=== PATIENT | male | born 2005 | race African-American/Black ===

== ENCOUNTER 2025-08-22 22:06 | Inpatient (IN) | payer SELFPAY ==
--- OUTSIDE RECORDS SUMMARY | 2018-05-21 08:00 | XMS_ITS | Continuity of Care Document ---
Author Organization [facility] Address [address] [place] [address] Phone Care Team Providers Care Title Agent Name Role Phone Sandra Merino Unavailable Unavailabl e Allergies, Adverse Reactions, Alerts Substance Reaction Status Criticality No Known Allergies Active No Inform ation Medications Medication Instructions Dosage Effective Dates (start - stop) Status Comments No Drug Therapy Prescribed Procedures Procedure Date Office Visit New Pt Level 3 Results Test Name Date and Time Measure Units Reference Range Abnormal Flag Status Comments Panel Description: CULTURE THROAT Preliminary CULTURE THROAT SEE BELOW Preliminary SOURCE: THROAT SITE: THROATTHROAT CULTURE THROAT,*PRELIMIN LORRIE* NO BETA STREP TO DATE FURTHER EVALUATION TO FOLLOW PERFORMED BY: [facility] [address] [place] [address] RESEARCH ENVIRONMENTAL ENGINEER: Ella Diamond MD, PhD CLIA: [id number] routine bacteriological identification and susceptibility testingis performed at the [facility] Panel Description: CULTURE THROAT Final CULTURE THROAT SEE BELOW Final SOURCE: [facility] SITE: THROATTHROAT CULTURE THROAT,FINAL* NO BETA STREP TO DATE FURTHER EVALUATION TO FOLLOW FINAL REPORT: NO BETA STREP ISOLATED PERFORMED BY: [facility] [address] [place] [address] RESEARCH ENVIRONMENTAL ENGINEER: Ella Diamond MD, PhD CLIA: [id number] routine bacteriological identification and susceptibility testingis performed at the [facility] Advance Directives Directive Yes / No Effective Date File Name No Information Encounters Encounter Description Practice Location Reason(s) For Visit Diagnoses Date Provider Office Visit New Pt Level 3 [facility], [address], [place], [id number], [place] tel:[phone] [facility] sore throat (chief complaint) Sore throat Godfrey Flores. [address] [place] [address], [address], . tel:[phone] Family History Family Member Type Diagnosis Age At Onset No Information Payers Payer name Insurance type Covered democrat ID Nga chow(matt BERNABE [id number] Social History Type Description Quantity Date Captured Comments Alcohol Use Details Unknown Caffeine Use Details Unknown Tobacco Use Status Never smoked tobacco 2017 Smoking Status Never smoker Non-Smoking Tobacco Use Details : No Details Available : No Details Available Sex Male Gender Identity Male Vital Signs Date / Time: Height Weight BMI Pulse Rate Blood Pressure Temperature Respiratory Rate Body Surface Area Head Circumference Head Circ. Percentile Wt./Brian. Percentile BMI percentile Pulse Ox Inhaled Ox 12:12 PM 61.235 kg (135.00 lbs) 80 /min 104/70 mm[Hg] 98.80 F 16 /min Chief Complaint And Reason For Visit From encounter dated '05/21/2018 12:00'. sore throat (chief complaint). Description: Onset: 3 Days ago. The severity of the problem is severe and has worsened. Pain scale: 7/10. The symptoms are persistent. Symptoms are associated with exposure to strep. Symptoms are not associated with recent cold. Denies relieving factors. Associated symptoms include pharyngitis. Pertinent negatives include chills/rigors, cough, decreased appetite, dyspnea, fatigue, fever, headache, otalgia, rash, tooth pain and wheezing. History Of Present Illness Encounter Date Complaint History Of Prese nt Illness sore throat Onset: 3 Days ag o. The severity of the problem is severe and has worsened. Pain scale: 7/10. The symptoms are persistent. Symptoms are associated with exposure to strep. Symptoms are not associated with recent cold. Denies relieving factors. Associated symptoms include pharyngitis. Pertinent negatives include chills/rigors, cough, decreased appetite, dyspnea, fatigue, fever, headache, otalgia, rash, tooth pain and wheezing. Medications Administered Medication Instructions Dosage Effective Dates (start - stop) Status Comments No Drug Therapy Prescribed Instructions Date Instruction Additional Infor mandeepkavon You have pharyngitis , which is likely viral given your negative rapid strep test. This means that antibiotics will not be helpful. We will be sending this for culture and will notify you if an antibiotic is needed. For treatment I recommend gargling salt water, drinking soothing liquids, honey, kandace tea, and popsicles as your illness runs its course. Be sure to rest as you are able and push fluids. OTC cough drops and Chloraseptic sprays can be very helpful as well. Ibuprofen 400mg three times a day as needed for discomfort. If things are not improving in the next 5 days, please return here. Related to Sore throat Assessments Type Assessment Date assessment Sore throat Mental Status Date Cognitive Assessment Orientation - [place] ed to time, place, person, situation.
--- OUTSIDE RECORDS SUMMARY | 2025-08-22 22:17 | XMS_ITS | Clinical Summary ---
Author Organization [facility] Address [address] [place] [address] [place] [address] Phone Care Team Providers Care Finish Machine Tender Name Role Phone Filipe Marie MD Primary Care Provide r Filipe Marie MD Unavailable [phone] Allergies No known active allergies Medications methylphenidate HCl 18 MG ER tablet Take 1 tablet (18 mg total) by mouth every morning. 30 tablet 04/19/2024 Active Active Problems Problem Noted Date Diagnosed Date Attention deficit hyperactiv ity disorder (ADHD), combined type 04/19/2024 Overview (04/19/2024): Dx by neuropsych testing Autism spectrum disorder 04/19/2024 Overview (04/19/2024): Dx by neuropsych testing: mild Resolved Problems Problem Noted Date Diagnosed Date Resolved Date Asthma 09/14/2012 10/25/2019 Overview (12/27/2014): Asthma Encounters Date Type Department Care Team Description 08/22/2025 [employer] Generated VIRTUAL DEPARTMENT [address] [place] [address] Lan De La Torre MD 08/21/2025 [employer] Generated VIRTUAL DEPARTMENT [address] [place] [address] Yesy, Yesy, 07/03/2025 [employer] Generated VIRTUAL DEPARTMENT [address] [place] [address] Yesy, Yesy, 06/09/2025 Orders Only [facility] [address] [facility], [address] [address] Fliipe Marie MD 06/02/2025 Nurse Triage [facility] [address] [facility], [address] [address] Aidee Cam RN 05/30/2025 10:13 AM EDT - 05/30/2025 11:59 PM EDT Hospital Encounter [facility] [address] [place] [address] Filipe Marie MD Discharge Disposition: Home or Self Care 05/30/2025 8:50 AM EDT Office Visit [facility] [address] [facility], [address] [address] Filipe Marie MD Annual physical exam (Primary Dx) 05/30/2025 Orders Only [facility] [address] [facility], [address] [address] Filipe Marie MD 05/30/2025 Transcribe Orders [facility] [address] [place] [address] Dejan Keita 05/30/2025 Orders Only [facility] [address] [facility], [address] [address] Samaria Rader, ORQUIDEA 05/28/2025 Orders Only [facility] [address] [facility], [address] [address] Filipe Marie MD from Last 3 Months Immunizations Immunization Administration Dates Next Due DTaP, unspecified formulation 11/03/2008 ,04/04/2006,03/30/2005,01/20,2004 HPV9 09/19/2018,09/22/2017 Hepatitis A, Unspecified 04/20/2007,10/20/2006 Hib-Hep B 12/26/2005,01/20/2005,2004 INFLUENZA, SPLIT VIRUS, TRIVALENT PF 08/02/2024, 09/14/2012 Influenza Quadrivalent Pedia tric Preservative Free IM 08/14/2020 Influenza Quadrivalent Prese rvative Free IM 09/30/2019,09/19/2018,09/22/2017,10/14,09/18/2015,09/19/2014,2013 Influenza Quadrivalent w/ Pr eservative IM 09/11/2021 Influenza Recombinant Chely valent Preservative Free IM 11/27/2022 Influenza, Unspecified Formulation 09/14/2012,,12/12/2008 MMR 11/03/2008,12/26/2005 Meningococcal MCV4P 10/13/2021,10/14/2016 Pneumococcal conjugate, PCV 7 09/16/2005 ,03/30/2005,01/20/2005,11/18 Polio, Unspecified Formulation 8,04/04/2006,01/20/2005,11/18 Tdap 10/14/2016 Varicella 11/03/2008,12/26/2005 Family History Relation Status Comments Brother Alive Father Alive Mother Alive Social History Tobacco Use Types Packs/Day Years Used Date Smoking Tobacco: Never Assessed Education Answer Date Recorded Are you interested in more education? Not on mouna e 03/04/2023 Are you concerned about learning? Not on file 03/04/2023 No 03/04/2023 No 03/04/2023 Digital Access Answer Date Recorded No 03/29/2023 No 03/29/2023 Reliable internet access at home? Not on file 03/29/2023 Device with a working camera? Not on file Sex and Gender Information Value Date Recorded Sex Assigned at Not on file Legal Sex Male 6:34 PM EST Gender Identity Not on file Sexual Orientation Not on file Last Filed Vital Signs Vital Sign Reading Time Taken Comments Blood Pressure 120/70 05/30/2025 9:11 AM EDT Pulse 65 02/10/2021 5:07 PM EDT Temperature 36.9 C (98.4 F) 02/10/2021 5:07 PM EDT Respiratory Rate 17 02/10/2021 5:07 PM EDT Oxygen Saturation 98% 02/24/2018 11:24 AM EDT Inhaled Oxygen Concentration - - Weight 78 kg (172 lb) 05/30/2025 9:11 AM EDT Height 178 cm (5' 10.08 ) 05/30/2025 9:11 AM EDT Body Mass Index 24.62 05/30/2025 9:11 AM EDT Plan of Treatment Health Maintenance Due Date Last Done Comments DEVELOPMENTAL/BEHAVIORAL SCREENING (PHQ, PSC, or SWYC) 2007 DEPRESSION SCREENING 2016 SMOKING Hx and SMOKELESS TOBACCO SCREENING 2017 MENINGOCOCCAL VACCINES (B) (1 of 2 - Standard) 2020 INFLUENZA VACCINE (#1) 2025 , 11/27/2022, 09/11/2021, Additional history exists COVID-19 VACCINE ( - 2024- season) 2025 11/27/2022, 05/02/2021, 04/11/2021 COMBINED DTaP,Tdap,Td (7 - Td or Tdap) 10/14/2026 10/14/2016, 11/03/2008, 04/04/2006, Additional history exists PNEUMOCOCCAL VACCINES (0-49 years) Aged Out 09/16/2005, 03/30/2005, 01/20/2005, Additional history exists No longer eligible based on patient's age to complete this topic HIB VACCINES Completed 12/26/2005, 01/04, 2004 HEPATITIS A VACCINES Completed 04/20/2007, 10/20/20 MMR VACCINES Completed 11/03/2008, 12/26/2005 VARICELLA VACCINES Completed 11/03/2008, 12/26/2005 HPV VACCINES Completed 09/19/2018, 09/22/2017 MENINGOCOCCAL VACCINES (ACWY) Completed 10/13/2021, 10/14/2016 ADOLESCENT UNIVERSAL LIPID SCREENING Completed 04/19/2024 HEPATITIS C SCREENING Completed 07/03/2025 HIV ONE-TIME SCREENING (18-65 YEARS) Completed 07/03/2025 Medical Devices Not on file Procedures Procedure Name Priority Date/Time Associated Diagnosis Comments CBC AND DIFFERENTIAL STAT 08/22/2025 12:33 AM EDT BASIC METABOLIC PANEL STAT 08/22/2025 12:32 AM EDT ETHANOL, BLOOD STAT 08/22/2025 12:32 AM EDT TOXICOLOGY SCREEN, URINE STAT 08/22/2025 12:12 AM EDT QUEST MISC TEST-REFRIG1 STAT 07/03/20 3:28 PM EDT LEUKEM/LYMP PHENOTYPE STAT 07/03/2025 3:28 PM EDT FERRITIN STAT 07/03/2025 3:28 PM EDT VITAMIN B12 STAT 07/03/2025 3:28 PM EDT IMMUNOGLOBULINS IGG, IGA, IGM STAT 07/03/2025 3:28 PM EDT LDH STAT 07/03/2025 3:28 PM EDT COMPREHENSIVE METABOLIC PANEL STAT 07/03/2025 3:28 PM EDT RETICULOCYTE COUNT STAT 07/03/2025 3: 28 PM EDT CBC AND DIFFERENTIAL STAT 07/03/2025 3:28 PM EDT DIRECT MOUNIKA Routine 07/03/2025 3:27 PM EDT AMINATA ZARATE VIRUS EVAL STAT 07/03/20 3:25 PM EDT IMMUNOFIXATION STAT 07/03/2025 3:25 PM EDT SERUM PROTEIN ELECTROPHORESIS STAT 07/03/2025 3:25 PM EDT EBV IGG EARLY ANTIGEN STAT 07/03/2025 3:25 PM EDT FREE KAPPA/LAMBDA LIGHT CHAINS STAT 07/03/2025 3:25 PM EDT HAPTOGLOBIN STAT 07/03/2025 3:25 PM EDT FOLATE STAT 07/03/2025 3:25 PM EDT HEPATITIS B CORE ANTIBODY, TOTAL STAT 07/03/2025 3:25 PM EDT HEPATITIS B SURFACE ANTIBODY STAT 07/03/2025 3:24 PM EDT HEPATITIS C VIRUS IGG AB STAT 07/03/2025 3:24 PM EDT HIV-1/2 ANTIGEN/ANTIBODY STAT 07/03/2025 3:24 PM EDT HEPATITIS B SURFACE ANTIGEN STAT 07/03/2025 3:24 PM EDT TSH STAT 07/03/2025 3:23 PM EDT IRON AND IRON BINDING CAPACITY STAT 07/03/2025 3:23 PM EDT COPPER, SERUM STAT 07/03/2025 3:22 PM EDT CBC AND DIFFERENTIAL Routine 05/30/2025 10:13 AM EDT Annual physical exam LIPID PANEL Routine 04/19/2024 11:39 AM EDT Annual physical exam from Last 3 Months or Most Recently Relevant to Health Maintenance Results * (ABNORMAL) CBC and differential (08/22/2025 12:33 AM EDT) Only the most recent of3 resultswithin the time period is included. WBC 6.1 4.5 - 11.0 10*3/mm3 [facility] (CLIA# [id number]) RBC 4.77 4.50 - 5.90 10*6/mm3 [facility] (CLIA# [id number]) Hemoglobin 14.3 13.5 - 17.5 g/dL [facility] (CLIA# [id number]) Hematocrit 41.9 41.0 - 53.0 % [facility] (CLIA# [id number]) Platelet 224 150 - 450 10*3/mm3 [facility] (IA# [id number]) % Neutrophils 65.6(H) 40 - 62 % [facility] (IA# [id number]) % Lymphocytes 23.8(L) 27 - 40 % [facility] (IA# [id number]) % Monocytes 7.4 0 - 11 % [facility] (IA# [id number]) % Eosinophils 2.1 0 - 6 % [facility] (IA# [id number]) % Basophils 0.8 0 - 3 % [facility] (IA# [id number]) % Immature Granulocytes 0.3 0 - 5 % [facility] (IA# [id number]) Abs Neutrophils 4.0 1.8 - 8.1 10*3/mm3 [facility] (CLIA# [id number]) Abs Lymph Count 1.4 1.2 - 5.2 10*3/mm3 [facility] (CLIA# [id number]) Abs Monocytes 0.5 0.0 - 0.8 10*3/mm3 [facility] (CLIA# [id number]) Abs Eosinophils 0.1 0 - 0.5 10*3/mm3 [facility] (CLIA# [id number]) Abs Basophils 0.1 0 - 0.3 10*3/mm3 [facility] (CLIA# [id number]) Abs Immature Granulocytes 0.0 0 - 0.5 10*3/mm3 [facility] (CLIA# [id number]) MCV 87.8 80.0 - 99.0 fL [facility] (CLIA# [id number]) MCH 30.0 26.0 - 34.0 pg [facility] (CLIA# [id number]) MCHC 34.1 31.0 - 35.5 g/dL [facility] (CLIA# [id number]) RDW 12.0 11.5 - 14.5 % [facility] (CLIA# [id number]) MPV 9.8 9.4 - 12.4 fL [facility] (CLIA# [id number]) % Nucleated RBC 0 0 % [facility] (CLIA# [id number]) Abs Nucleated RBC 0.0 0 10*3/mm3 E [facility] (CLIA# [id number]) 08/22/2025 12:3 3 AM EDT 08/22/2025 12:51 AM EDT Lan De La Torre MD LAB BLOOD ORDERABLES Final Result [facility] (CLIA# [id number]) [address] [place] [address] * Ethanol, blood (08/22/2025 12:32 AM EDT) Ethanol < 3 <3 mg/dL [facility] (CLIA# [id number]) 08/22/2025 12:3 2 AM EDT 08/22/2025 12:52 AM EDT us Lan De La Torre MD LAB BLOOD ORDERABLES Final Result [facility] (CLIA# [id number]) [address] [place] [address] * (ABNORMAL) Basic metabolic panel (08/22/2025 12:32 AM EDT) Sodium 138 135 - 145 mmol/L [facility] (CLIA# [id number]) Potassium 3.2(L) 3.5 - 5.5 mmol/L [facility] (CLIA# [id number]) Chloride 100 98 - 107 mmol/l [facility] (CLIA# [id number]) Carbon Dioxide 26 20.0 - 31.0 mmol/L [facility] (CLIA# [id number]) Anion Gap 12 5 - 15 mmol/L [facility] (CLIA# [id number]) Glucose 99 70 - 99 mg/dL [facility] (CLIA# [id number]) Comment:Adult, Fasting Non-d iabetic Reference Range Blood Urea Nitrogen 6(L) 9 - 23 mg/dL [facility] (CLIA# [id number]) Creatinine 0.97 0.70 - 1.30 mg/dL [facility] (CLIA# [id number]) GFR Estimated (Calc) 115 >60 [facility] (CLIA# [id number]) Comment: eGFRcr Reference: Normal: > 90 ml/min/1.73 m2 Indeterminate, relevance is multifactorial: 60 -89 ml/min/1.73 m2 Suggest Kidney Disease: 16 -59 ml/min/1.73 m2 Suggest Kidney Failure: < 15 ml/min/1.73 m2 Calcium 9.9 8.3 - 10.6 mg/dL [facility] (CLIA# [id number]) 08/22/2025 12:3 2 AM EDT 08/22/2025 12:52 AM EDT us Lan De La Torre MD LAB BLOOD ORDERABLES Final Result [facility] (CLIA# [id number]) [address] [place] [id number] * Toxicology screen, urine (08/22/2025 12:12 AM EDT) Amphetamines, Urine NONE DETECTED [facility] (CLIA# [id number]) Barbiturates, Urine NONE DETECTED [facility] (CLIA# [id number]) Benzodiazepines, Urine NONE DETECTED [facility] (CLIA# [id number]) Cannabinoids(THC), Urine POSITIVE [facility] (CLIA# [id number]) Cocaine Metabolites, Urine NONE DETECTED [facility] (CLIA# [id number]) Opiates, Urine NONE DETECTED [facility] (CLIA# [id number]) Fentanyl, Urine NONE DETECTED [facility] (CLIA# [id number]) Buprenorphine, Urine NONE DETECTED [facility] (CLIA# [id number]) Comment: UDA CUTOFF VALUES UR AMPHETAMINES 1000 ng/mL UR BARBITURATES 200 ng/mL UR BENZODIAZEPINES 200 ng/mL UR CANNABINIODS 50 ng/mL UR COCAINES 300 ng/mL UR OPIATES 300 ng/mL UR FENTANYL 1 ng/mL UR BUPRENORPHINE 5 ng/mL [facility] performs toxicology screens to be used for screening purposes only for the clinical management of the patient. This includes drug screens to test for drugs of abuse and testing for compliance with mental health or rehabilitation programs. The results of these tests are unconfirmed. Confirmatory testing can be done by request on any positive result. 08/22/2025 12:1 2 AM EDT 08/22/2025 12:32 AM EDT us Lan De La Torre MD URINE ORDERABLES Final Resu lt [facility] (CLIA# [id number]) [address] [place] [address] * Leukemia/Lymphoma Phenotype (07/03/2025 3:28 PM EDT) Clinical Information: NOT PROVIDED () [facility] (CLIA# [id number]) Viability: 87 () % [facility] (CLIA# [id number]) Interpretation SEE BELOW () [facility] (CLIA# [id number]) Comment: NO ATYPICAL FLOW CYTOMETRIC FINDINGS SEEN Lymphocytes include polyclonal B cells, NK cells, T-cell large granular lymphocytes, and immunophenotypically normal CD4+ and CD8+ T cells in normal proportions. No evidence of a clonal lymphoid expansion. Granulocytes are immunophenotypically mature. Flow Cytometry reviewed by William Hansen M.D. Sample Description: SEE BELOW () [facility] (CLIA# [id number]) Comment: The analyzed WBCs in the sample include 28% lymphocytes, 7% monocytes and 65% granulocytes. Gating Strategy: SEE BELOW () [facility] (CLIA# [id number]) Comment: Granulocytes and lymphocytes were selected for analysis based on CD45 staining intensity, forward scatter and side scatter. Specimen PERIPHERAL BLOOD () [facility] (CLIA# [id number]) Number Of Markers: 22 () E [facility] (CLIA# [id number]) Comment: Test performed at [facility] [place] [id number] [place], [place] Director: Obdulio Miller M.D., Ph.D.,Director of Laboratories Markers SEE BELOW () [facility] (CLIA# [id number]) Comment: Rebecca A - Granulocytes Marker Percentage CD2 0 CD3 0 CD4 0 CD5 0 CD7 0 CD8 0 CD10 92 CD11c 100 CD13 97 CD19 0 CD19+CD5+ 0 CD20 0 CD23 1 CD33 1 CD34 0 CD38 2 CD45 100 CD56+CD3- 1 CD64 0 CD117 1 HLA_DR 2 [place] CD19+ 0 Lambda CD19+ 0 K/L Ratio NA Rebecca B - Lymphocytes Marker Percentage CD2 79 CD3 74 CD4 49 CD5 75 CD7 62 CD8 27 CD10 2 CD11c 6 CD13 0 CD19 11 CD19+CD5+ 1 CD20 11 CD23 6 CD33 0 CD34 0 CD38 40 CD45 100 CD56+CD3- 6 CD64 0 CD117 0 HLA_DR 16 [place] CD19+ 6 Lambda CD19+ 5 K/L Ratio 1.20 This test was developed and its analytical performance characteristics have been determined by [facility] [place], [place]. It has not been cleared or approved by the U.S. Food and Drug Administration. This assay has been validated pursuant to the CLIA regulations and is used for clinical purposes. 07/03/2025 3:28 PM EDT 07/03/2025 3:42 PM EDT us Lan Estrada [facility] LAB BLOOD ORDERABLES Fin al Result [facility] (CLIA# [id number]) [address] [place] [address] * Reticulocyte count (07/03/2025 3:28 PM EDT) % Reticulocyte 1.0 0.5 - 1.5 % [facility] (CLIA# [id number]) Abs Reticulocyte 0.05 0.04 - 0.07 10*3/mm3 [facility] (CLIA# [id number]) 07/03/2025 3:28 PM EDT 07/03/2025 3:37 PM EDT Lan Estrada [facility] LAB BLOOD ORDERABLES Fin al Result Performing Organization Address [facility] Co de Phone Number [facility] (CLIA# [id number]) [address] [place] [address] * LDH (07/03/2025 3:28 PM EDT) LDH 239 120 - 246 U/L [facility] (CLIA# [id number]) 07/03/2025 3:28 PM EDT 07/03/2025 3:37 PM EDT Lan Estrada [facility] LAB BLOOD ORDERABLES Fin al Result Performing Organization Address [facility] de Phone Number [facility] (CLIA# [id number]) [address] [place] [address] * (ABNORMAL) Immunoglobulins IgG, IgA, IgM (07/03/2025 3:28 PM EDT) Immunoglobulin M 44.2(L) 50 - 300 mg/dL [facility] (CLIA# [id number]) Immunoglobulin A 105.1 40 - 350 mg/dL [facility] (CLIA# [id number]) Immunoglobulin G 873 650 - 1,600 mg/dL [facility] (CLIA# [id number]) 07/03/2025 3:28 PM EDT 07/03/2025 3:37 PM EDT Lan Estrada [facility] LAB BLOOD ORDERABLES Fin al Result Performing Organization Address [facility] Co de Phone Number [facility] (CLIA# [id number]) [address] [place] [address] * (ABNORMAL) Comprehensive metabolic panel (07/03/2025 3:28 PM EDT) Sodium 140 135 - 145 mmol/L [facility] (CLIA# [id number]) Potassium 3.9 3.5 - 5.5 mmol/L [facility] (CLIA# [id number]) Chloride 102 98 - 107 mmol/l [facility] (CLIA# [id number]) Carbon Dioxide 28 20.0 - 31.0 mmol/L [facility] (CLIA# [id number]) Anion Gap 10 5 - 15 mmol/L [facility] (CLIA# [id number]) Glucose 86 70 - 99 mg/dL [facility] (CLIA# [id number]) Comment:Adult, Fasting Non-d iabetic Reference Range Blood Urea Nitrogen 8(L) 9 - 23 mg/dL [facility] (CLIA# [id number]) Creatinine 1.25 0.70 - 1.30 mg/dL [facility] (CLIA# [id number]) GFR Estimated (Calc) 85 >60 [facility] (CLIA# [id number]) Comment: eGFRcr Reference: Normal: > 90 ml/min/1.73 m2 Indeterminate, relevance is multifactorial: 60 -89 ml/min/1.73 m2 Suggest Kidney Disease: 16 -59 ml/min/1.73 m2 Suggest Kidney Failure: < 15 ml/min/1.73 m2 Calcium 10.4 8.3 - 10.6 mg/dL [facility] (CLIA# [id number]) Comment:PLEASE NOTE: NEW REF ERENCE RANGE Total Protein 8.2 5.7 - 8.2 g/dL [facility] (CLIA# [id number]) Albumin 5.3(H) 3.2 - 4.8 g/dL [facility] (CLIA# [id number]) Globulin 2.9 1.6 - 3.5 g/dL [facility] (CLIA# [id number]) Alb/Glob Ratio 1.8 [facility] (CLIA# [id number]) Bilirubin,Total 0.8 0.3 - 1.2 mg/dL [facility] (CLIA# [id number]) Alkaline Phosphatase 71 46 - 116 U/L [facility] (CLIA# [id number]) AST(SGOT) 56(H) 13 - 40 U/L [facility] (CLIA# [id number]) ALT(SGPT) 69(H) 7 - 40 U/L [facility] (CLIA# [id number]) 07/03/2025 3:28 PM EDT 07/03/2025 3:37 PM EDT us Lan Estrada [facility] LAB BLOOD ORDERABLES Fin al Result [facility] (CLIA# [id number]) [address] [place] [address] * [facility] Test-Refrig1 (07/03/2025 3:28 PM EDT) Pathologist [facility] Test-Refrig1 FLEXITEST 3 () [facility] (CLIA# [id number]) Comment: FLEXITEST 3 A. PHAGOCYTOPHILUM AB IGG <1:64 <1:64 A. PHAGOCYTOPHILUM AB IGM <1:20 <1:20 INTERPRETATION Antibody Not Detected COMMENT Anaplasma phagocytophilum is the tick-borne agent causing Human Granulocytic Ehrlichiosis (HGE). HGE is distinct and separate from Human Monocytic Ehrlichiosis (HME), caused by Ehrlichia chaffeensis. Serologic crossreactivity between A. phagocyto- philum and E. chaffeensis is minimal (5-15%). This test was developed and its analytical performance characteristics have been determined by [facility], [place], [place]. It has not been cleared or approved by the U.S. Food and Drug Administration. This assay has been validated pursuant to the CLIA regulations and is used for clinical purposes. BABESIA DUNCANI (WA1) AB (IGG), IFA TESTS RESULTS--------UNITS--REF. RANGE--- B.DUNCANI(WA1)AB(IgG),IFA <1:256 REFERENCE RANGE: <1:256 INTERPRETIVE CRITERIA: <1:256 Antibody not detected > or = 1:256 Antibody detected Babesia duncani, also known as WA1, has been associated with symptoms similar to those caused by Babesia microti. Little, if any, cross-reactivity occurs between Babesia microti and WA1. This test was developed and its analytical performance characteristics have been determined by [facility]. It has not been cleared or approved by FDA. This assay has been validated pursuant to the CLIA regulations and is used for clinical purposes. Test performed by [facility] [address] [place] [address] Personal Financial Counselor: Dori Ruiz MD,PHD,VIDYA Test Reported by [facility], [facility] [place], [address] [place] [address] Obdulio Miller M.D., Ph.D., Director of Laboratories , [facility] [id number] BABESIA MICROTI AB (IGG) <1:64 <1:64 BABESIA MICROTI AB (IGM) <1:20 <1:20 INTERPRETATION Antibody Not Detected Elevated antibody levels to B. microti indicate exposure to the organism. Human babesiosis infection is transmitted by the bite of an infected Ixodes tick or less frequently from transfusion with blood from an infected donor. Definitive diagnosis is made by identifying intraerythrocytic organisms in peripheral blood. In patients with low parasitemia, antibody detection by IFA is recommended. IgG levels greater than or equal to 1:1024 can be detected in acute phase patients with parasites in blood smears. The IFA assay can be used as a seroepidemiologic tool to study the frequency and distribution of B. microti in endemic areas especially in persons with mixed infections also involving Borrelia burgdorferi. This test was developed and its analytical performance characteristics have been determined by [facility]. It has not been cleared or approved by the U.S. Food and Drug Administration. This assay has been validated pursuant to the CLIA regulations and is used for clinical purposes. LYME AB SCREEN <0.90 Index <0.90 Reference ranges: Index Interpretation ----- <0.90 Negative 0.90-1.09 Equivocal >1.09 Positive As recommended by the Food and Drug Administration (FDA), all samples with positive or equivocal results in a Borrelia burgdorferi antibody screen will be tested using a blot method. Positive or equivocal screening test results should not be interpreted as truly positive until verified as such using a supplemental assay (e.g., B. burgdorferi blot). The screening test and/or blot for B. burgdorferi antibodies may be falsely negative in early stages of Lyme disease, including the period when erythema migrans is apparent. The Code of [place], Article 1 of Chapter 5 of Title 32.1, section 32.1-137.06, requires that the following language must be included on every Lyme disease test report issued by a [place] laboratory: Patients undergoing a Lyme disease test should be aware that Lyme disease tests vary and may produce results that are inaccurate. This means a patient may not be able to rely on a positive or negative result. Health care providers are encouraged to discuss Lyme disease test results with the patient for whom the test was ordered. E. CHAFFEENSIS AB IGG <1:64 <1:64 E. CHAFFEENSIS AB IGM <1:20 <1:20 INTERPRETATION Antibody Not Detected COMMENT Ehrlichia chaffeenis has been identified as the causative agent of Human Monocytic Ehrlichiosis (HME). Infected individuals produce specific antibodies to E. chaffeensis that can be detected by an immuno- fluorescent antibody (IFA) test. Single IgG IFA titers of 1:64 or greater indicate exposure to E. chaffeensis. A four-fold rise in IgG titers between acute and convalescent samples and/or the presence of IgM antibody against E. chaffeensis suggest recent or current infection. This test was developed and its analytical performance characteristics have been determined by [facility], [place], [place]. It has not been cleared or approved by the U.S. Food and Drug Administration. This assay has been validated pursuant to the CLIA regulations and is used for clinical purposes. Test performed at [facility] [address] [place] [id number] Director: Obdulio Miller M.D., Ph.D.,Director of Laboratories 07/03/2025 3:28 PM EDT 07/03/2025 3:43 PM EDT us Lan Estrada [facility] LAB BLOOD ORDERABLES Fin al Result Performing Organization Address [facility] Co de Phone Number [facility] (CLIA# [id number]) [address] [facility] [place] [address] * Ferritin (07/03/2025 3:28 PM EDT) Ferritin 208.8 10.5 - 307.3 ng/mL [facility] (CLIA# [id number]) 07/03/2025 3:28 PM EDT 07/03/2025 3:37 PM EDT us Lan Estrada [facility] LAB BLOOD ORDERABLES Fin al Result Performing Organization Address [facility] Co de Phone Number [facility] (CLIA# [id number]) [address] [place] [address] * Vitamin B12 (07/03/2025 3:28 PM EDT) Vitamin B12 670 211 - 911 pg/mL [facility] (CLIA# [id number]) 07/03/2025 3:28 PM EDT 07/03/2025 3:37 PM EDT us Lan Estrada [facility] LAB BLOOD ORDERABLES Fin al Result Performing Organization Address [facility] Co de Phone Number [facility] (CLIA# [id number]) [address] [facility] [place] [address] * Direct Mounika (07/03/2025 3:27 PM EDT) Direct Antiglobulin Test (IgG-AHG) NEG [facility] (CLIA# [id number]) Direct Antiglobulin Test Anti-C3 NEG [facility] (CLIA# [id number]) TONY C3b, C3d 5 Minute NEG [facility] (CLIA# [id number]) 07/03/2025 3:27 PM EDT 07/03/2025 3:34 PM EDT us Unknown Unknown MD BLOOD BANK TEST ORDERABLES Fi nal Result Performing Organization Address City/[facility]/ZIP Co de Phone Number [facility] (CLIA# [id number]) [address] [place] [id number] * Free Umapine/Lambda Light Chains (07/03/2025 3:25 PM EDT) Umapine Free Light Chain, Ser 7.8 3.3 - 19.4 mg/L [facility] (CLIA# [id number]) Lambda Free Light Chain, Ser 7.0 5.7 - 26.3 mg/L [facility] (CLIA# [id number]) Umapine/Lambda Flc Ratio 1.11 0.26 - 1.65 [facility] (CLIA# [id number]) Comment: Free kappa/lambda ratio in serum of normal individuals is 0.26-1.65. Excess production of free kappa or lambda chains can alter the ratio. Monoclonal free light chains are found in the serum of patients with multiple myeloma, Waldenstrom's macroglobulinemia, mu-heavy chain disease, primary amyloidosis, light chain deposition disease, monoclonal gammopathy of undetermined significance, and lymphoproliferative disorders. Measurement of free light chain concen- tration in serum is useful for diagnosis, prognosis, monitoring disease activity and following response to therapy of these disorders. Test performed at [facility] [address] Director: Obdulio Miller M.D., Ph.D.,Director of Laboratories 07/03/2025 3:25 PM EDT 07/03/2025 3:43 PM EDT us Lan Estrada [facility] LAB BLOOD ORDERABLES Fin al Result Performing Organization Address City/[facility]/ZIP Co de Phone Number [facility] (CLIA# [id number]) [address] [place] [address] * (ABNORMAL) Serum Protein Electrophoresis (07/03/2025 3:25 PM EDT) Pathologist [facility] Total Protein 7.5 6.1 - 8.1 g/dL [facility] (CLIA# [id number]) Albumin 4.7 3.8 - 4.8 g/dL [facility] (CLIA# [id number]) Alpha-1 Globulin 0.4(H) 0.2 - 0.3 g/dL [facility] (CLIA# [id number]) Alpha-2 Globulin 0.9 0.5 - 0.9 g/dL [facility] (CLIA# [id number]) Beta 1 Globulin 0.4 0.4 - 0.6 g/dL [facility] (CLIA# [id number]) Beta 2 Globulin 0.4 0.2 - 0.5 g/dL [facility] (CLIA# [id number]) Gamma-Globulin 0.8 0.8 - 1.7 g/dL [facility] (CLIA# [id number]) Abnormal Protein Band 1 SEE BELOW () [facility] (CLIA# [id number]) Comment: No M Boom detected. Reference Range: None Detected Impression SEE BELOW(A) () [facility] (CLIA# [id number]) Comment: Alpha-1 globulin increase noted. Test performed at [facility] [address] [id number] Director: Obdulio Miller M.D., Ph.D.,Director of Laboratories 07/03/2025 3:25 PM EDT 07/03/2025 3:43 PM EDT us Lan Estrada [facility] LAB BLOOD ORDERABLES Fin al Result [facility] (CLIA# [id number]) [address] [place] [address] * EBV IgG early antigen (07/03/2025 3:25 PM EDT) EBV EA IgG Ab <9.00 <9.00 U/mL [facility] (CLIA# [id number]) Comment: U/mL Interpretation <9.00 Negative 9.00 - 10.99 Equivocal >10.99 Positive Test performed at [address] Director: Obdulio Miller M.D., Ph.D.,Director of Laboratories 07/03/2025 3:25 PM EDT 07/03/2025 3:43 PM EDT Lan Estrada [facility] LAB BLOOD ORDERABLES Fin al Result Performing Organization Address City/[facility] Co de Phone Number [facility] (CLIA# [id number]) [address] [place] [address] * Immunofixation (07/03/2025 3:25 PM EDT) Pathologist [facility] Immunofixation Normal pattern. () [facility] (CLIA# [id number]) Comment: No monoclonal proteins detected. Test performed at [address] Director: Obdulio Miller M.D., Ph.D.,Director of Laboratories 07/03/2025 3:25 PM EDT 07/03/2025 3:43 PM EDT us Lan Estrada [facility] LAB BLOOD ORDERABLES Fin al Result Performing Organization Address City/[facility]/ZIP Co de Phone Number [facility] (CLIA# [id number]) [address] [place] [address] * Aminata Zarate Virus Eval (07/03/2025 3:25 PM EDT) Pathologist [facility] EBV VCA IgM Ab <36.00 <36.00 U/mL [facility] (CLIA# [id number]) Comment: U/mL Interpretation <36.00 Negative 36.00 - 43.99 Equivocal >43.99 Positive EBV VCA IgG Ab <18.00 <18.00 U/mL [facility] (CLIA# [id number]) Comment: U/mL Interpretation <18.00 Negative 18.00 - 21.99 Equivocal >21.99 Positive EBV EBNA Ab IgG <18.00 <18.00 U/mL [facility] (CLIA# [id number]) Comment: U/mL Interpretation <18.00 Negative 18.00 - 21.99 Equivocal >21.99 Positive Interpretation Negative () [facility] (CLIA# [id number]) Comment: No Aminata-Zarate Virus antibody detected. Test performed at [facility] [address] [place] [address] Director: Obdulio Miller M.D., Ph.D.,Director of Laboratories 07/03/2025 3:25 PM EDT 07/03/2025 3:43 PM EDT Lan Estrada [facility] LAB BLOOD ORDERABLES Fin al Result [facility] (CLIA# [id number]) [address] [place] [id number] * Hepatitis B core antibody, total (07/03/2025 3:25 PM EDT) Hepatitis B Core, Total Nonreactive Nonreactive [facility] (CLIA# [id number]) Comment: PROGRESSIVE HB CORE AB IGM Not indicated Test performed at [facility] Director: Obdulio Miller M.D., Ph.D.,Director of Laboratories 07/03/2025 3:25 PM EDT 07/03/2025 3:43 PM EDT Lan Estrada [facility] LAB BLOOD ORDERABLES Fin al Result [facility] (CLIA# [id number]) [address] [place] [address] * Haptoglobin (07/03/2025 3:25 PM EDT) Haptoglobin 189 43 - 212 mg/dL [facility] (CLIA# [id number]) Comment: Test performed at [facility] [address] Director: Obdulio Miller M.D., Ph.D.,Director of Laboratories 07/03/2025 3:25 PM EDT 07/03/2025 3:43 PM EDT [facility] LAB BLOOD ORDERABLES Fin al Result Performing Organization Address [facility] Co de Phone Number [facility] (CLIA# [id number]) [address] [place] [address] * Folate (07/03/2025 3:25 PM EDT) Folate 37.8 5.4 ng/ml [facility] (CLIA# [id number]) Comment: Reference Range: SEE CHART BELOW Normal: >5.38 ng/mL Indeterminate: 3.38 - 5.38 ng/mL Deficient: <0.56 - 3.37 ng/mL 07/03/2025 3:25 PM EDT 07/03/2025 3:37 PM EDT Lan Dawn Estrada [facility] LAB BLOOD ORDERABLES Fin al Result Performing Organization Address City/[facility]/ZIP Co de Phone Number [facility] (CLIA# [id number]) [address] [place] [address] * HIV-1/2 antigen/antibody (07/03/2025 3:24 PM EDT) HIV I,II,P24 Screen NONREACTIVE NONREACTIVE [facility] (CLIA# [id number]) 07/03/2025 3:24 PM EDT 07/03/2025 3:37 PM EDT us Lan Estrada [facility] LAB BLOOD ORDERABLES Fin al Result [facility] (CLIA# [id number]) [address] [place] [address] * Hepatitis C Virus IgG Ab (07/03/2025 3:24 PM EDT) Hepatitis C Virus IgG Ab NONREACTIVE NONREACTIVE [facility] (CLIA# [id number]) 07/03/2025 3:24 PM EDT 07/03/2025 3:37 PM EDT us Lan Estrada [facility] LAB BLOOD ORDERABLES Fin al Result [facility] (CLIA# [id number]) [address] [place] [address] * Hepatitis B surface antibody (07/03/2025 3:24 PM EDT) Hepatitis B Surface Antibody REACTIVE NONREACTIVE [facility] (CLIA# [id number]) 07/03/2025 3:24 PM EDT 07/03/2025 3:37 PM EDT us Lan Estrada [facility] LAB BLOOD ORDERABLES Fin al Result [facility] (CLIA# [id number]) [address] [place] [address] * Hepatitis B surface antigen (07/03/2025 3:24 PM EDT) Hepatitis B Surface Antigen < 0.10 INDEX [facility] (CLIA# [id number]) Comment: NONREACTIVE 0.00 - 0.99 INDEX Presumptive Reactive 1.00 - 49.99 INDEX Reactive >50.00 INDEX Hepatitis B Surface Antigen NONREACTIVE [facility] (CLIA# [id number]) 07/03/2025 3:24 PM EDT 07/03/2025 3:37 PM EDT Lan Estrada [facility] LAB BLOOD ORDERABLES Fin al Result [facility] (CLIA# [id number]) [address] [place] [address] * (ABNORMAL) Iron and iron binding capacity (07/03/2025 3:23 PM EDT) Iron 35(L) 65 - 175 ug/dL [facility] (CLIA# [id number]) Total Iron Binding Capacity 290 250 - 425 ug/dL [facility] (CLIA# [id number]) Percent Iron Saturation 12(L) 17 - 50 % [facility] (CLIA# [id number]) 07/03/2025 3:23 PM EDT 07/03/2025 3:38 PM EDT us Lan Estrada [facility] LAB BLOOD ORDERABLES Fin al Result [facility] (CLIA# [id number]) [address] [place] [address] * TSH (07/03/2025 3:23 PM EDT) Thyroid Stimulating Hormone 1.10 0.55 - 4.78 uIU/mL [facility] (CLIA# [id number]) 07/03/2025 3:23 PM EDT 07/03/2025 3:38 PM EDT Lan Dawn Natalie [facility] LAB BLOOD ORDERABLES Fin al Result Performing Organization Address [facility] Co de Phone Number [facility] (CLIA# [id number]) [address] [place] [address] * Copper, Serum (07/03/2025 3:22 PM EDT) Copper 107 70 - 175 mcg/dL [facility] (CLIA# [id number]) Comment: This test was developed and its analytical performance characteristics have been determined by [facility] [place], [place]. It has not been cleared or approved by the U.S. Food and Drug Administration. This assay has been validated pursuant to the CLIA regulations and is used for clinical purposes. Test performed at [facility] [address] Director: Obdulio Miller M.D., Ph.D.,Director of Laboratories 07/03/2025 3:22 PM EDT 07/03/2025 3:46 PM EDT Lan Estrada [facility] LAB BLOOD ORDERABLES Fin al Result Performing Organization Address [facility] Co de Phone Number [facility] (CLIA# [id number]) [address] [place] [address] * Lipid panel (04/19/2024 11:39 AM EDT) CHOLESTEROL 186 140 - 200 mg/dL [facility] Comment: Desirable: <200 Borderline: 200-239 High: >239 TRIGLYCERIDES 77 0 - 149 mg/dL [facility] Comment: Normal <150 mg/dL Border-High 150-199 mg/dL High Triglycerides 200-499 mg/dL Very High Triglycerides >=500 mg/dL HDL 84 >40 mg/dL [facility] Comment: Recommendations according to the National Cholesterol Education Program Guidelines: <40 mg/dL: Low (Major risk factor for CHD) >= 60 mg/dL: High (Negative risk factor for CHD) CALCULATED LDL 87 0 - 129 mg/dL [facility] NON-HDL CHOLESTEROL 102 mg/dL [facility] CARDIAC RISK RATIO 2.2 0 - 5 [facility] 04/19/2024 11:3 9 AM EDT 04/19/2024 1:22 PM EDT us Filipe Marie MD LAB BLOOD ORDERABLES Final Result [facility] [address] [place] [address] from Last 3 Months or Most Recently Relevant to Health Maintenance Insurance [facility] P[facility] P[facility] P[facility] EPO [facility] PPO EPO [facility] PPO EPO Care Teams Finish Machine Tender Relationship Specialty Start Date End Date Filipe Marie MD [address] [place] [address] [email or web address] PCP - General Pediatrics 10/07/22 Filipe Marie MD [address] [place] [address] [email or web address] Insurance Assigned Provider 02/10/24 Additional Source Comments The information contained in this document represents components of the legal health record. It is not the complete legal health record.[facility]
--- OUTSIDE RECORDS SUMMARY | 2025-08-22 22:17 | XMS_ITS | Encounter Summary ---
Author Organization [facility] Address [address] [place] [address] [place] [phone] Phone Care Team Providers Care Certified Dietary Manager Name Role Phone Filipe Marie MD Primary Care Provide r Filipe Marie MD Unavailable Encounter Details Date Type Department Care Team (Late st Contact Info) Description 08/22/2025 [employer] Generated VIRTUAL DEPARTMENT [address] [place] [phone] Lan De La Torre MD [address] [place] [address] [email or web address] Social History Tobacco Use Types Packs/Day Years [...] on file Sexual Orientation Not on file documented as of this encounter Plan of Treatment Not on file documented as of this encounter Procedures Procedure Name Priority Date/Time Associated Diagnosis Comments CBC AND DIFFERENTIAL STAT 08/22/2025 12:33 AM EDT ETHANOL, BLOOD STAT 08/22/2025 12:32 AM EDT BASIC METABOLIC PANEL STAT 08/22/2025 12:32 AM EDT TOXICOLOGY SCREEN, URINE STAT 08/22/2025 12:12 AM EDT documented in this encounter Results * (ABNORMAL) CBC and differential (08/22/2025 12:33 AM EDT) WBC 6.1 4.5 - 11.0 10*3/mm3 [facility] (CLIA# [id number]) RBC 4.77 4.50 - 5.90 10*6/mm3 [facility] (CLIA# [id number]) Hemoglobin 14.3 13.5 - 17.5 g/dL [facility] (CLIA# [id number]) Hematocrit 41.9 41.0 - 53.0 % [facility] (CLIA# [id number]) Platelet 224 150 - 450 10*3/mm3 [facility] (CLIA# [id number]) % Neutrophils 65.6(H) 40 - 62 % [facility] (CLIA# [id number]) % Lymphocytes 23.8(L) 27 - 40 % [facility] (CLIA# [id number]) % Monocytes 7.4 0 - 11 % [facility] (CLIA# [id number]) % Eosinophils 2.1 0 - 6 % [facility] (CLIA# [id number]) % Basophils 0.8 0 - 3 % [facility] (CLIA# [id number]) % Immature Granulocytes 0.3 0 - 5 % [facility] (CLIA# [id number]) Abs Neutrophils 4.0 1.8 - 8.1 10*3/mm3 [facility] (CLIA# [id number]) Abs Lymph Count 1.4 1.2 - 5.2 10*3/mm3 [facility] (CLIA# [id number]) Abs Monocytes 0.5 0.0 - 0.8 10*3/mm3 [facility] (CLIA# [id number]) Abs Eosinophils 0.1 0 - 0.5 10*3/mm3 [facility] (CLIA# [id number]) Abs Basophils 0.1 0 - 0.3 10*3/mm3 [facility] (CLIA# [id number]) Abs Immature Granulocytes 0.0 0 - 0.5 10*3/mm3 [facility] (CLIA# [id number]) MCV 87.8 80.0 - 99.0 fL [facility] (CLIA# [id number]) MCH 30.0 26.0 - 34.0 pg [facility] (CLIA# [id number]) MCHC 34.1 31.0 - 35.5 g/dL [facility] (CLIA# [id number]) RDW 12.0 11.5 - 14.5 % [facility] (CLIA# [id number]) MPV 9.8 9.4 - 12.4 fL [facility] (CLIA# [id number]) % Nucleated RBC 0 0 % [facility] (CLIA# [id number]) Abs Nucleated RBC 0.0 0 10*3/mm3 E [facility] (CLIA# [id number]) 08/22/2025 12:3 3 AM EDT 08/22/2025 12:51 AM EDT us Lan De La Torre MD LAB BLOOD ORDERABLES Final Result [facility] (CLIA# [id number]) [address] [place] [address] * (ABNORMAL) Basic metabolic panel (08/22/2025 12:32 AM EDT) Sodium 138 135 - 145 mmol/L [facility] (CLIA# [id number]) Potassium 3.2(L) 3.5 - 5.5 mmol/L [facility] (CLIA# [id number]) Chloride 100 98 - 107 mmol/l [facility] (CLIA# [id number]) Carbon Dioxide 26 20.0 - 31.0 mmol/L [facility] (CLIA# [id number]) Anion Gap 12 5 - 15 mmol/L [facility] (CLIA# [id number]) Glucose 99 70 - 99 mg/dL [facility] (CLIA# [id number]) Comment:Adult, Fasting Non-d iabetic Reference Range Blood Urea Nitrogen 6(L) 9 - 23 mg/dL [facility] (CLIA# [id number]) Creatinine 0.97 0.70 - 1.30 mg/dL [facility] (CLIA# [id number]) GFR Estimated (Calc) 115 >60 [facility] (CLIA# [id number]) Comment: eGFRcr Reference: Normal: > 90 ml/min/1.73 m2 Indeterminate, relevance is multifactorial: 60 -89 ml/min/1.73 m2 Suggest Kidney Disease: 16 -59 ml/min/1.73 m2 Suggest Kidney Failure: < 15 ml/min/1.73 m2 Calcium 9.9 8.3 - 10.6 mg/dL [facility] (CLIA# [id number]) 08/22/2025 12:3 2 AM EDT 08/22/2025 12:52 AM EDT us Lan De La Torre MD LAB BLOOD ORDERABLES Final Result [facility] (CLIA# [id number]) [address] [facility] [place] [address] * Ethanol, blood (08/22/2025 12:32 AM EDT) Ethanol < 3 <3 mg/dL [facility] (CLIA# [id number]) 08/22/2025 12:3 2 AM EDT 08/22/2025 12:52 AM EDT us Lan De La Torre MD LAB BLOOD ORDERABLES Final Result [facility] (CLIA# [id number]) [address] [place] [address] * Toxicology screen, urine (08/22/2025 12:12 AM EDT) Amphetamines, Urine NONE DETECTED [facility] (CLIA# [id number]) Barbiturates, Urine NONE DETECTED [facility] (CLIA# [id number]) Benzodiazepines, Urine NONE DETECTED [facility] (CLIA# [id number]) Cannabinoids(THC), Urine POSITIVE [facility] (CLIA# [id number]) Cocaine Metabolites, Urine NONE DETECTED [facility] (CLIA# [id number]) Opiates, Urine NONE DETECTED [facility] (CLIA# [id number]) Fentanyl, Urine NONE DETECTED [facility] (CLIA# [id number]) Buprenorphine, Urine NONE DETECTED [facility] (CLIA# [id number]) Comment: UDA CUTOFF VALUES UR AMPHETAMINES 1000 ng/mL UR BARBITURATES 200 ng/mL UR BENZODIAZEPINES 200 ng/mL UR CANNABINIODS 50 ng/mL UR COCAINES 300 ng/mL UR OPIATES 300 ng/mL UR FENTANYL 1 ng/mL UR BUPRENORPHINE 5 ng/mL [facility] performs toxicology screens to be [...] 2 AM EDT 08/22/2025 12:32 AM EDT Lan De La Torre MD URINE ORDERABLES Final Resu lt [facility] (CLIA# [id number]) [address] [place] [address] documented in this encounter Visit Diagnoses Not on filedocumented in this encounter Care Teams Certified Dietary Manager Relationship Specialty Start Date End Date Filipe Marie MD [address] [place] [address] [email or web address] PCP - General Pediatrics 10/07/22 Filipe Marie MD [address] [place] [address] [email or web address] Insurance Assigned Provider 02/10/24 documented as of this encounter Additional Source Comments The information contained in this document represents components of the legal health record. It is not the complete legal health record.[facility]
--- OUTSIDE RECORDS SUMMARY | 2025-08-22 22:17 | XMS_ITS | Patient Health Record ---
Author Organization [facility] Address [address] [address] Care Team Providers Care Screen Examiner Name Role Phone RASHEL HAIR Primary Care Provider Erica Lagunas, [facility] Reason For Referral No Information Plan Of Treatment No Information Insurance Providers Payer Name Payer Address Payer Phone Subscriber Number Group Number Insured Name Patient Relationship to Insured Coverage Start Date Coverage End Date [employer] BLUE CARD [address] [place] [address] [id number] Self - patient is the insured 2014
--- OUTSIDE RECORDS SUMMARY | 2025-08-22 22:17 | XMS_ITS | Encounter Summary ---
Author Organization [facility] Address [address] [place] [address] [place] [address] Phone Care Team Providers Care [employer] Crew Chief Name Role Phone Filipe Marie MD Primary Care Provide r Filipe Marie MD Unavailable [phone] Encounter Details Date Type Department Care Team (Late st Contact Info) Description 07/03/2025 adicate timeads Generated VIRTUAL DEPARTMENT [address] [place] [id number] Unknown, Unknown, Social History Tobacco Use Types Packs/Day Years [...] on file documented as of this encounter Consult Notes * Lan Estrada, [facility] - 07/03/2025 2:18 PM EDT [place] [address] [place], [place] [phone] Fax HEMATOLOGY/ONCOLOGY CONSULT NOTE Patient Name: CK MO Date of : 2005 Diagnosis: [ICD10] D64.9 Anemia, unspecified [ICD10] D72.819 Decreased white blood cell count, unspecified PCP: RILEY SARABIA, FILIPE Grider Date of Visit: July 03, 2025 Reason for Visit: Anemia and Leukopenia Assessment and Plan: Ck is a 19 year old who presented to hematology clinic for evaluation and management of anemia and leukopenia. Anemia resolved/remained borderline on most recent CBC. We reviewed that neutropenia could be secondary to a number of causes including medication toxicity, infection, nutritional deficiency, hematologic malignancy such as LGL, thyroid disease, rheumatologic disorders such as rheumatoid arthritis, SLE, aplastic anemia, inherited, or chronic idiopathic neutropenia. He does not have any joint or skin issues to suggest autoimmune etiology. 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 We discussed that additional testing will be helpful to aid in narrowing the differential. 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 #Borderline Anemia, screened negative for sickle cell with primary care - CBC with differential, CMP - peripheral blood flow cytometry to evaluate for clonal disorder - iron panel + ferritin, vitamin B12, folate, copper to evaluate for nutritional deficiency - LDH, haptoglobin, retic, TONY -TSH - HIV, HBV, HCV, EBV panel - SPEP, RIVER, K/L free light chains to screen for plasma cell dyscrasia -Tick Panel - instructed to seek medical attention with new symptoms or concerns: especially fever 100.4 F or higher, recurrent infection, signs or symptoms of infection, unintentional weight loss, drenching night sweats, easy bruising, bleeding, profound fatigue or other issues - He will review test results in the patient gateway and reach out with any questions or concerns - RTC in 6 months with CBC with differential or sooner PRN Diagnosis History: 04/19/24: WBC 2.6, ANC 1.19 05/30/25: WBC 2.5, Hgb 13.5, Plt 187, ANC 1.08 Interval History: Feels well. Does feel tired frequently. No hospitalizations for infections in hislifetime. Does not get sick more frequently than peers. No joint aches or pains. Past Medical History: None ADHD Past Surgical History: None Medications: No Medications Allergies: No Known Drug Allergies Family History: No known family history of anemia, mother has borderline low white count (reports total WBC in the 3s) [place]e descent. Social History: Lives in [place]. Lives with mother. In college, taking classes in [employer]. No cigarettes. Does vape and smoke marijuana. Review of Systems: Negative except as above. Physical Examination: Vital Signs: Date 07/03/2025 Time 2:14 PM Vital Signs & Weight T (F) (F) 98 P 72 B/P (mmHg) 131/74 Oxygen Saturation (%) 97 Weight (lb) (lb) 167 ECOG Performance status: 0 Appears well No splenomegaly Laboratory Data: Date Time Time Spent: 60 minutes including oxvw-sm-lanu time, chart review, care coordination and clinical documentation Medical Decision Makin chronic issue Electronically signed by: Lan Estrada MD July 03, 2025 3:19 PM CC: cc: Name: CK MO : 2005 DOS: 07/03/2025 Page 3 of 3 CC OTHER PROVIDER: PRIMARY CARE: FILIPE MARIE MD documented in this encounter Plan of Treatment Not on file documented as of this encounter Procedures Procedure Name Priority Date/Time Associated Diagnosis Comments LEUKEM/LYMP PHENOTYPE STAT 07/03/2025 3:28 PM EDT RETICULOCYTE COUNT STAT 07/03/2025 3: 28 PM EDT LDH STAT 07/03/2025 3:28 PM EDT IMMUNOGLOBULINS IGG, IGA, IGM STAT 07/03/2025 3:28 PM EDT COMPREHENSIVE METABOLIC PANEL STAT 07/03/2025 3:28 PM EDT [facility] MISC TEST-REFRIG1 STAT 07/03/20 3:28 PM EDT CBC AND DIFFERENTIAL STAT 07/03/2025 3:28 PM EDT FERRITIN STAT 07/03/2025 3:28 PM EDT VITAMIN B12 STAT 07/03/2025 3:28 PM EDT DIRECT MOUNIKA Routine 07/03/2025 3:27 PM EDT FREE KAPPA/LAMBDA LIGHT CHAINS STAT 07/03/2025 3:25 PM EDT SERUM PROTEIN ELECTROPHORESIS STAT 07/03/2025 3:25 PM EDT EBV IGG EARLY ANTIGEN STAT 07/03/2025 3:25 PM EDT IMMUNOFIXATION STAT 07/03/2025 3:25 PM EDT AMINATA ZARATE VIRUS EVAL STAT 07/03/20 3:25 PM EDT HEPATITIS B CORE ANTIBODY, TOTAL STAT 07/03/2025 3:25 PM EDT HAPTOGLOBIN STAT 07/03/2025 3:25 PM EDT FOLATE STAT 07/03/2025 3:25 PM EDT HIV-1/2 ANTIGEN/ANTIBODY STAT 07/03/2025 3:24 PM EDT HEPATITIS C VIRUS IGG AB STAT 07/03/2025 3:24 PM EDT HEPATITIS B SURFACE ANTIBODY STAT 07/03/2025 3:24 PM EDT HEPATITIS B SURFACE ANTIGEN STAT 07/03/2025 3:24 PM EDT IRON AND IRON BINDING CAPACITY STAT 07/03/2025 3:23 PM EDT TSH STAT 07/03/2025 3:23 PM EDT COPPER, SERUM STAT 07/03/2025 3:22 PM EDT documented in this encounter Results * [facility] Test-Refrig1 (07/03/2025 3:28 PM EDT) [facility] Test-Refrig1 FLEXITEST 3 () [facility] (CLIA# [id number]) Comment: FLEXITEST 3 A. PHAGOCYTOPHILUM AB IGG [...] analytical performance characteristics have been determined by [facility], [place], [place]. It has not been cleared or approved by the U.S. Food and Drug Administration. This assay has been validated pursuant to the CLIA regulations and is used for clinical purposes. BABESIA DUNCANI (WA1) AB (IGG), IFA TESTS RESULTS--------UNITS--REF. RANGE--- B.DUNCANI(WA1)AB(IgG),IFA <1:256 REFERENCE RANGE: <1:256 INTERPRETIVE CRITERIA: <1:256 Antibody not detected > or = 1:256 Antibody detected Babesia radhai, also known as WA1, has been associated with symptoms similar to those caused by Babesia microti. Little, if any, cross-reactivity occurs between Babesia microti and WA1. This test was developed and its analytical performance characteristics have been determined by [facility]. It has not been cleared or approved by FDA. This assay has been validated pursuant to the CLIA regulations and is used for clinical purposes. Test performed by [facility] [address] [place] [address] Outreach Assistant: Dori Ruiz MD,PHD,VIDYA Test Reported by [facility], [place], [facility] [place], [address] [place] [address] Obdulio Miller M.D., Ph.D., Director of Laboratories , CLIA [id number] BABESIA MICROTI AB (IGG) <1:64 <1:64 BABESIA [...] analytical performance characteristics have been determined by [facility], [place]. It has not been cleared or [...] period when erythema migrans is apparent. [facility] [place], Article 1 of Chapter 5 of Title 32.1, section 32.1-137.06, requires that the following language must be included on every Lyme disease test report issued by a [place] laboratory: Patients undergoing a Lyme disease test [...] analytical performance characteristics have been determined by [facility], [place], [place]. It has not been cleared or approved by the U.S. Food and Drug Administration. This assay has been validated pursuant to the CLIA regulations and is used for clinical purposes. Test performed at [facility] [address] Director: Obdulio Miller M.D., Ph.D.,Director of Laboratories 07/03/2025 3:28 PM EDT 07/03/2025 3:43 PM EDT Lan Estrada [facility] LAB BLOOD ORDERABLES Fin al Result [facility] (CLIA# [id number]) [address] [place] [address] * Leukemia/Lymphoma Phenotype (07/03/2025 3:28 PM EDT) Clinical Information: NOT PROVIDED () [facility] (CLIA# [id number]) Viability: 87 () % [facility] (CLIA# [id number]) Interpretation SEE BELOW () [facility] (CLIA# [id number]) Comment: NO ATYPICAL FLOW CYTOMETRIC FINDINGS SEEN Lymphocytes include polyclonal B cells, NK cells, T-cell large granular lymphocytes, and immunophenotypically normal CD4+ and CD8+ T cells in normal proportions. No evidence of a clonal lymphoid expansion. Granulocytes are immunophenotypically mature. Flow Cytometry reviewed by William Hansen M.D. Sample Description: SEE BELOW () [facility] (CLIA# [id number]) Comment: The analyzed WBCs in the sample include 28% lymphocytes, 7% monocytes and 65% granulocytes. Gating Strategy: SEE BELOW () [facility] (CLIA# [id number]) Comment: Granulocytes and lymphocytes were selected for analysis based on CD45 staining intensity, forward scatter and side scatter. Specimen PERIPHERAL BLOOD () [facility] (CLIA# [id number]) Number Of Markers: 22 () [facility] (CLIA# [id number]) Comment: Test performed at [facility] [address] Director: Obdulio Miller M.D., Ph.D.,Director of Laboratories Markers SEE BELOW () [facility] (CLIA# [id number]) Comment: [place] A - Granulocytes Marker Percentage CD2 0 CD3 0 CD4 0 CD5 0 CD7 0 CD8 0 CD10 92 CD11c 100 CD13 97 CD19 0 CD19+CD5+ 0 CD20 0 CD23 1 CD33 1 CD34 0 CD38 2 CD45 100 CD56+CD3- 1 CD64 0 CD117 1 HLA_DR 2 [place] CD19+ 0 Lambda CD19+ 0 K/L Ratio NA [place] B - Lymphocytes Marker Percentage CD2 79 CD3 74 CD4 49 CD5 75 CD7 62 CD8 27 CD10 2 CD11c 6 CD13 0 CD19 11 CD19+CD5+ 1 CD20 11 CD23 6 CD33 0 CD34 0 CD38 40 CD45 100 CD56+CD3- 6 CD64 0 CD117 0 HLA_DR 16 [place] CD19+ 6 Lambda CD19+ 5 K/L Ratio 1.20 This test was developed and its analytical performance characteristics have been determined by [facility] [place], [place], [place]. It has not been cleared or approved by the U.S. Food and Drug Administration. This assay has been validated pursuant to the CLIA regulations and is used for clinical purposes. 07/03/2025 3:28 PM EDT 07/03/2025 3:42 PM EDT us Lan Estrada [facility] LAB BLOOD ORDERABLES Fin al Result Performing Organization Address [facility] Co de Phone Number [facility] (CLIA# [id number]) [address] [place] [address] * Ferritin (07/03/2025 3:28 PM EDT) Ferritin 208.8 10.5 - 307.3 ng/mL [facility] (CLIA# [id number]) 07/03/2025 3:28 PM EDT 07/03/2025 3:37 PM EDT Lan Estrada [facility] LAB BLOOD ORDERABLES Fin al Result Performing Organization Address City/[facility]/ZIP Co de Phone Number [facility] (CLIA# [id number]) [address] [place], [place] [id number] * Vitamin B12 (07/03/2025 3:28 PM EDT) Vitamin B12 670 211 - 911 pg/mL [facility] (CLIA# [id number]) 07/03/2025 3:28 PM EDT 07/03/2025 3:37 PM EDT Lan Estrada [facility] LAB BLOOD ORDERABLES Fin al Result Performing Organization Address City/[facility] Co de Phone Number [facility] (CLIA# [id number]) [address] [place] [address] * (ABNORMAL) Immunoglobulins IgG, IgA, IgM (07/03/2025 3:28 PM EDT) Immunoglobulin M 44.2(L) 50 - 300 mg/dL [facility] (CLIA# [id number]) Immunoglobulin A 105.1 40 - 350 mg/dL [facility] (CLIA# [id number]) Immunoglobulin G 873 650 - 1,600 mg/dL [facility] (CLIA# [id number]) 07/03/2025 3:28 PM EDT 07/03/2025 3:37 PM EDT Lan Estrada [facility] LAB BLOOD ORDERABLES Fin al Result Performing Organization Address City/[facility] Co de Phone Number [facility] (CLIA# [id number]) [address] [place] [address] * LDH (07/03/2025 3:28 PM EDT) LDH 239 120 - 246 U/L [facility] (CLIA# [id number]) 07/03/2025 3:28 PM EDT 07/03/2025 3:37 PM EDT Lan Estrada [facility] LAB BLOOD ORDERABLES Fin al Result Performing Organization Address City/[facility]/ZIP Co de Phone Number [facility] (CLIA# [id number]) [address] [place] [address] * (ABNORMAL) Comprehensive metabolic panel (07/03/2025 3:28 PM EDT) Sodium 140 135 - 145 mmol/L [facility] (CLIA# [id number]) Potassium 3.9 3.5 - 5.5 mmol/L [facility] (CLIA# [id number]) Chloride 102 98 - 107 mmol/l [facility] (CLIA# [id number]) Carbon Dioxide 28 20.0 - 31.0 mmol/L [facility] (CLIA# [id number]) Anion Gap 10 5 - 15 mmol/L [facility] (CLIA# [id number]) Glucose 86 70 - 99 mg/dL [facility] (CLIA# [id number]) Comment:Adult, Fasting Non-d iabetic Reference Range Blood Urea Nitrogen 8(L) 9 - 23 mg/dL [facility] (CLIA# [id number]) Creatinine 1.25 0.70 - 1.30 mg/dL [facility] (CLIA# [id number]) GFR Estimated (Calc) 85 >60 [facility] (CLIA# [id number]) Comment: eGFRcr Reference: Normal: > 90 ml/min/1.73 m2 Indeterminate, relevance is multifactorial: 60 -89 ml/min/1.73 m2 Suggest Kidney Disease: 16 -59 ml/min/1.73 m2 Suggest Kidney Failure: < 15 ml/min/1.73 m2 Calcium 10.4 8.3 - 10.6 mg/dL [facility] (CLIA# [id number]) Comment:PLEASE NOTE: NEW REF ERENCE RANGE Total Protein 8.2 5.7 - 8.2 g/dL [facility] (CLIA# [id number]) Albumin 5.3(H) 3.2 - 4.8 g/dL [facility] (CLIA# [id number]) Globulin 2.9 1.6 - 3.5 g/dL [facility] (CLIA# [id number]) Alb/Glob Ratio 1.8 [facility] (CLIA# [id number]) Bilirubin,Total 0.8 0.3 - 1.2 mg/dL [facility] (CLIA# [id number]) Alkaline Phosphatase 71 46 - 116 U/L [facility] (CLIA# [id number]) AST(SGOT) 56(H) 13 - 40 U/L [facility] (CLIA# [id number]) ALT(SGPT) 69(H) 7 - 40 U/L [facility] (CLIA# [id number]) 07/03/2025 3:28 PM EDT 07/03/2025 3:37 PM EDT Lan Estrada [facility] LAB BLOOD ORDERABLES Fin al Result Performing Organization Address [facility]/ZIP Co de Phone Number [facility] (CLIA# [id number]) [address] [place], [place] [phone] * Reticulocyte count (07/03/2025 3:28 PM EDT) % Reticulocyte 1.0 0.5 - 1.5 % [facility] (CLIA# [id number]) Abs Reticulocyte 0.05 0.04 - 0.07 10*3/mm3 [facility] (CLIA# [id number]) 07/03/2025 3:28 PM EDT 07/03/2025 3:37 PM EDT us Lan Estrada [facility] LAB BLOOD ORDERABLES Fin al Result [facility] (CLIA# [id number]) [address] [place] [address] * (ABNORMAL) CBC and differential (07/03/2025 3:28 PM EDT) WBC 2.5(L) 4.5 - 11.0 10*3/mm3 [facility] (CLIA# [id number]) RBC 5.09 4.50 - 5.90 10*6/mm3 [facility] (CLIA# [id number]) Hemoglobin 16.1 13.5 - 17.5 g/dL [facility] (IA# [id number]) Hematocrit 45.1 41.0 - 53.0 % [facility] (IA# [id number]) Platelet 186 150 - 450 10*3/mm3 [facility] (IA# [id number]) % Neutrophils 47.8 40 - 62 % [facility] (IA# [id number]) % Lymphocytes 33.9 27 - 40 % [facility] (IA# [id number]) % Monocytes 13.5(H) 0 - 11 % [facility] (IA# [id number]) % Eosinophils 4.0 0 - 6 % [facility] (IA# [id number]) % Basophils 0.8 0 - 3 % [facility] (IA# [id number]) % Immature Granulocytes 0.0 0 - 5 % [facility] (IA# [id number]) Abs Neutrophils 1.2(L) 1.8 - 8.1 10*3/mm3 [facility] (CLIA# [id number]) Abs Lymph Count 0.9(L) 1.2 - 5.2 10*3/mm3 [facility] (IA# [id number]) Abs Monocytes 0.3 0.0 - 0.8 10*3/mm3 [facility] (CLIA# [id number]) Abs Eosinophils 0.1 0 - 0.5 10*3/mm3 [facility] (IA# [id number]) Abs Basophils 0.0 0 - 0.3 10*3/mm3 [facility] (CLIA# [id number]) Abs Immature Granulocytes 0.0 0 - 0.5 10*3/mm3 [facility] (CLIA# [id number]) MCV 88.6 80.0 - 99.0 fL [facility] (IA# [id number]) MCH 31.6 26.0 - 34.0 pg [facility] (IA# [id number]) MCHC 35.7(H) 31.0 - 35.5 g/dL [facility] (IA# [id number]) RDW 11.9 11.5 - 14.5 % [facility] (CLIA# [id number]) MPV 9.5 9.4 - 12.4 fL [facility] (CLIA# [id number]) % Nucleated RBC 0 0 % [facility] (CLIA# [id number]) Abs Nucleated RBC 0.0 0 10*3/mm3 E [facility] (CLIA# [id number]) 07/03/2025 3:28 PM EDT 07/03/2025 3:37 PM EDT us Lan Estrada [facility] LAB BLOOD ORDERABLES Fin al Result Performing Organization Address City/[facility]/ZIP Co de Phone Number [facility] (CLIA# [id number]) [address] [place] [address] * Direct Mounika (07/03/2025 3:27 PM EDT) Pathologist [facility] Direct Antiglobulin Test (IgG-AHG) [facility] (CLIA# [id number]) Direct Antiglobulin Test Anti-C3 [facility] (CLIA# [id number]) TONY C3b, C3d 5 Minute NEG [facility] (CLIA# [id number]) 07/03/2025 3:27 PM EDT 07/03/2025 3:34 PM EDT Unknown Unknown MD BLOOD BANK TEST ORDERABLES Fi nal Result Performing Organization Address City/[facility]/ZIP Co de Phone Number [facility] (CLIA# [id number]) [address] [place] [address] * Aminata Zarate Virus Eval (07/03/2025 3:25 PM EDT) EBV VCA IgM Ab <36.00 <36.00 U/mL [facility] (CLIA# [id number]) Comment: U/mL Interpretation <36.00 Negative 36.00 - 43.99 Equivocal >43.99 Positive EBV VCA IgG Ab <18.00 <18.00 U/mL [facility] (CLIA# [id number]) Comment: U/mL Interpretation <18.00 Negative 18.00 - 21.99 Equivocal >21.99 Positive EBV EBNA Ab IgG <18.00 <18.00 U/mL [facility] (CLIA# [id number]) Comment: U/mL Interpretation <18.00 Negative 18.00 - 21.99 Equivocal >21.99 Positive Interpretation Negative () [facility] (CLIA# [id number]) Comment: No Aminata-Zarate Virus antibody detected. Test performed at [facility] [address] [place] [address] Director: Obdulio Miller M.D., Ph.D.,Director of Laboratories 07/03/2025 3:25 PM EDT 07/03/2025 3:43 PM EDT Lan Estrada [facility] LAB BLOOD ORDERABLES Fin al Result [facility] (CLIA# [id number]) [address] [facility] [place] [address] * Immunofixation (07/03/2025 3:25 PM EDT) Pathologist [facility] Immunofixation Normal pattern. () [facility] (CLIA# [id number]) Comment: No monoclonal proteins detected. Test performed at [facility] [address] [place] [address] Director: Obdulio Miller M.D., Ph.D.,Director of Laboratories 07/03/2025 3:25 PM EDT 07/03/2025 3:43 PM EDT us Lan Estrada [facility] LAB BLOOD ORDERABLES Fin al Result [facility] (CLIA# [id number]) [address] [facility] [place] [address] * (ABNORMAL) Serum Protein Electrophoresis (07/03/2025 3:25 PM EDT) Total Protein 7.5 6.1 - 8.1 g/dL [facility] (CLIA# [id number]) Albumin 4.7 3.8 - 4.8 g/dL [facility] (CLIA# [id number]) Alpha-1 Globulin 0.4(H) 0.2 - 0.3 g/dL [facility] (CLIA# [id number]) Alpha-2 Globulin 0.9 0.5 - 0.9 g/dL [facility] (CLIA# [id number]) Beta 1 Globulin 0.4 0.4 - 0.6 g/dL [facility] (CLIA# [id number]) Beta 2 Globulin 0.4 0.2 - 0.5 g/dL [facility] (CLIA# [id number]) Gamma-Globulin 0.8 0.8 - 1.7 g/dL [facility] (CLIA# [id number]) Abnormal Protein Band 1 SEE BELOW () [facility] (CLIA# [id number]) Comment: No M Boom detected. Reference Range: None Detected Impression SEE BELOW(A) () [facility] (CLIA# [id number]) Comment: Alpha-1 globulin increase noted. Test performed at [facility] [address] [address] Director: Obdulio Miller M.D., Ph.D.,Director of Laboratories 07/03/2025 3:25 PM EDT 07/03/2025 3:43 PM EDT Lan Estrada [facility] LAB BLOOD ORDERABLES Fin al Result [facility] (CLIA# [id number]) [address] [place] [address] * EBV IgG early antigen (07/03/2025 3:25 PM EDT) EBV EA IgG Ab <9.00 <9.00 U/mL [facility] (CLIA# [id number]) Comment: U/mL Interpretation <9.00 Negative 9.00 - 10.99 Equivocal >10.99 Positive Test performed at [facility] [address] [address] Director: Obdulio Miller M.D., Ph.D.,Director of Laboratories 07/03/2025 3:25 PM EDT 07/03/2025 3:43 PM EDT Lan Estrada [facility] LAB BLOOD ORDERABLES Fin al Result [facility] (CLIA# [id number]) [address] [place] [address] * Free [place]/Lambda Light Chains (07/03/2025 3:25 PM EDT) [place] Free Light Chain, Ser 7.8 3.3 - 19.4 mg/L [facility] (CLIA# [id number]) Lambda Free Light Chain, Ser 7.0 5.7 - 26.3 mg/L [facility] (CLIA# [id number]) [place]/Lambda Flc Ratio 1.11 0.26 - 1.65 [facility] (CLIA# [id number]) Comment: Free kappa/lambda ratio in serum of [...] therapy of these disorders. Test performed at [facility] [address] Director: Obdulio Miller M.D., Ph.D.,Director of Laboratories 07/03/2025 3:25 PM EDT 07/03/2025 3:43 PM EDT Lan Estrada [facility] LAB BLOOD ORDERABLES Fin al Result Performing Organization Address [facility] Co de Phone Number [facility] (CLIA# [id number]) [address] [place] [address] * Hepatitis B core antibody, total (07/03/2025 3:25 PM EDT) Hepatitis B Core, Total Nonreactive Nonreactive [facility] (CLIA# [id number]) Comment: PROGRESSIVE HB CORE AB IGM Not indicated Test performed at [address] Director: Obdulio Miller M.D., Ph.D.,Director of Laboratories 07/03/2025 3:25 PM EDT 07/03/2025 3:43 PM EDT Lan Estrada [facility] LAB BLOOD ORDERABLES Fin al Result Performing Organization Address City/[facility]/ZIP Co de Phone Number [facility] (CLIA# [id number]) [address] [place] [address] * Haptoglobin (07/03/2025 3:25 PM EDT) Haptoglobin 189 43 - 212 mg/dL [facility] (CLIA# [id number]) Comment: Test performed at [facility] [address] Director: Obdulio Miller M.D., Ph.D.,Director of Laboratories 07/03/2025 3:25 PM EDT 07/03/2025 3:43 PM EDT Lan Estrada [facility] LAB BLOOD ORDERABLES Fin al Result [facility] (CLIA# [id number]) [address] [place] [address] * Folate (07/03/2025 3:25 PM EDT) Folate 37.8 5.4 ng/ml [facility] (CLIA# [id number]) Comment: Reference Range: SEE CHART BELOW Normal: >5.38 ng/mL Indeterminate: 3.38 - 5.38 ng/mL Deficient: <0.56 - 3.37 ng/mL 07/03/2025 3:25 PM EDT 07/03/2025 3:37 PM EDT Lan [facility] LAB BLOOD ORDERABLES Fin al Result Performing Organization Address City/[facility]/ZIP Co de Phone Number [facility] (CLIA# [id number]) [address] [place] [address] * Hepatitis B surface antibody (07/03/2025 3:24 PM EDT) Hepatitis B Surface Antibody REACTIVE NONREACTIVE [facility] (CLIA# [id number]) 07/03/2025 3:24 PM EDT 07/03/2025 3:37 PM EDT Lan Estr[facility] LAB BLOOD ORDERABLES Fin al Result [facility] (CLIA# [id number]) [address] [place] [address] * Hepatitis C Virus IgG Ab (07/03/2025 3:24 PM EDT) Hepatitis C Virus IgG Ab NONREACTIVE NONREACTIVE [facility] (CLIA# [id number]) 07/03/2025 3:24 PM EDT 07/03/2025 3:37 PM EDT Lan Estr[facility] LAB BLOOD ORDERABLES Fin al Result Performing Organization Address City/[facility]/ZIP Co de Phone Number [facility] (CLIA# [id number]) [address] [place] [address] * HIV-1/2 antigen/antibody (07/03/2025 3:24 PM EDT) HIV I,II,P24 Screen NONREACTIVE NONREACTIVE [facility] (CLIA# [id number]) 07/03/2025 3:24 PM EDT 07/03/2025 3:37 PM EDT Lan Estr[facility] LAB BLOOD ORDERABLES Fin al Result Performing Organization Address [facility] Co de Phone Number [facility] (CLIA# [id number]) [address] [place] [address] * Hepatitis B surface antigen (07/03/2025 3:24 PM EDT) Hepatitis B Surface Antigen < 0.10 INDEX [facility] (CLIA# [id number]) Comment: NONREACTIVE 0.00 - 0.99 INDEX Presumptive Reactive 1.00 - 49.99 INDEX Reactive >50.00 INDEX Hepatitis B Surface Antigen NONREACTIVE [facility] (CLIA# [id number]) 07/03/2025 3:24 PM EDT 07/03/2025 3:37 PM EDT Lan Estr[facility] LAB BLOOD ORDERABLES Fin al Result Performing Organization Address City/[facility]/ZIP Co de Phone Number [facility] (CLIA# [id number]) [address] [place] [address] * TSH (07/03/2025 3:23 PM EDT) Thyroid Stimulating Hormone 1.10 0.55 - 4.78 uIU/mL [facility] (CLIA# [id number]) 07/03/2025 3:23 PM EDT 07/03/2025 3:38 PM EDT Lan Estr[facility] LAB BLOOD ORDERABLES Fin al Result Performing Organization Address [facility] Co de Phone Number [facility] (CLIA# [id number]) [address] [place] [address] * (ABNORMAL) Iron and iron binding capacity (07/03/2025 3:23 PM EDT) Iron 35(L) 65 - 175 ug/dL [facility] (CLIA# [id number]) Total Iron Binding Capacity 290 250 - 425 ug/dL [facility] (CLIA# [id number]) Percent Iron Saturation 12(L) 17 - 50 % [facility] (CLIA# [id number]) 07/03/2025 3:23 PM EDT 07/03/2025 3:38 PM EDT Lan Estr[facility] LAB BLOOD ORDERABLES Fin al Result Performing Organization Address [facility]/ZIP Co de Phone Number [facility] (CLIA# [id number]) [address] [place] [address] * Copper, Serum (07/03/2025 3:22 PM EDT) Copper 107 70 - 175 mcg/dL [facility] (CLIA# [id number]) Comment: This test was developed and its analytical performance characteristics have been determined by [facility] [place], [place]. It has not been cleared or approved by the U.S. Food and Drug Administration. This assay has been validated pursuant to the CLIA regulations and is used for clinical purposes. Test performed at [facility] [address] [address] Director: Obdulio Miller M.D., Ph.D.,Director of Laboratories 07/03/2025 3:22 PM EDT 07/03/2025 3:46 PM EDT Lan Estr[facility] LAB BLOOD ORDERABLES Fin al Result [facility] (CLIA# [id number]) [address] [place] [address] documented in this encounter Visit Diagnoses Not on filedocumented in this encounter Care Teams Fixed Wing Aircraft Crew Chief Relationship Specialty Start Date End Date Filipe Marie MD [address] [place] [address] [email or web address] PCP - General Pediatrics 10/07/22 Filipe Marie MD [address] [place] [address] [email or web address] Insurance Assigned Provider 02/10/24 documented as of this encounter Additional Source Comments The information contained in this document represents components of the legal health record. It is not the complete legal health record.[facility]
--- OUTSIDE RECORDS SUMMARY | 2025-08-22 22:17 | XMS_ITS | Clinical Summary ---
Author Organization [facility]: [facility] Address [address] [address] Care Team Providers Care Freight Unloader Name Role Phone Pcp, No MD Primary Care Provider Unavailabl e Allergies No known active allergies Medications No known medications Immunizations Immunization Administration Dates Next Due Tdap 10/14/2016 Social History Tobacco Use Types Packs/Day Years Used Date Smoking Tobacco: Never Sex and Gender Information Value Date Recorded Sex Assigned at Not on file Legal Sex Male 10:39 AM EDT Gender Identity Not on file Sexual Orientation Not on file Last Filed Vital Signs Vital Sign Reading Time Taken Comments Blood Pressure 106/86 12/10/2020 4:13 PM EST Pulse 64 12/10/2020 4:13 PM EST Temperature 37.1 C (98.8 F) 12/10/2020 4:13 PM EST Respiratory Rate 16 12/10/2020 4:13 PM EST Oxygen Saturation 96% 12/10/2020 4:13 PM EST Inhaled Oxygen Concentration - - Weight 73.2 kg (161 lb 6.4 oz) 12/10/2020 4:13 P M EST Height - - Body Mass Index - - Plan of Treatment Health Maintenance Due Date Last Done Comments Varicella Vaccines (1 of 2 - 13+ 2-dose series) 2017 HIV Screening 2019 HPV Vaccines (1 - Male 3-dose series) 2019 Meningococcal B (MenB) Vaccines (1 of 2 - Standard) 2020 Hepatitis C Screening 2022 Hepatitis B Vaccines (1 of 3 - 19+ 3-dose series) 2023 COVID-19 Vaccine ( - season) 2025 Influenza Vaccine (#1) 2025 2, 09/14/2012, 09/28/2011, Additional history exists DTaP/Tdap/Td Vaccines (2 - Td or Tdap) 10/14/2026 10/14/2016 HIB Vaccines Aged Out No longer eligi ble based on patient's age to complete this topic Hepatitis A Vaccines Aged Out No long er eligible based on patient's age to complete this topic IPV Vaccines Aged Out No longer eligi ble based on patient's age to complete this topic Meningococcal Vaccines Aged Out No lo nger eligible based on patient's age to complete this topic Pneumococcal Vaccine: Pediatrics (0-5 years) and At-Risk Patients (6-50 years) Aged Out No longer eligible based on patient's age to complete this topic Insurance INACTIVE [facility] OOS Care Teams Freight Unloader Relationship Specialty Start Date End Date Pcp, Tata, PCP - General Generic/Test/No PCP 12/10/20
--- OUTSIDE RECORDS SUMMARY | 2025-08-22 22:17 | XMS_ITS | Encounter Summary ---
Author Organization [facility] Address [address] [place] [address] [place] [phone] Phone Care Team Providers Care Miller Head Wet Process Name Role Phone Filipe Marie MD Primary Care Provide r Filipe Marie MD Unavailable [phone] Encounter Details Date Type Department Care Team (Late st Contact Info) Description 05/30/2025 Transcribe Orders [address] [address] Dejan Keita [address] [place] [address] [email or web address] Social History Tobacco Use Types Packs/Day Years [...] on file documented as of this encounter Visit Diagnoses Not on filedocumented in this encounter Care Teams Miller Head Wet Process Relationship Specialty Start Date End Date Filipe Marie MD [address] [place] [address] [email or web address] PCP - General Pediatrics 10/07/22 Filipe Marie MD [address] [place] [address] [email or web address] Insurance Assigned Provider 02/10/24 documented as of this encounter Additional Source Comments The information contained in this document represents components of the legal health record. It is not the complete legal health record.[facility]
--- OUTSIDE RECORDS SUMMARY | 2025-08-22 22:17 | XMS_ITS | Encounter Summary ---
Author Organization [facility] Address [address] [place] [address] [place] [address] Phone Care Team Providers Care Clinical Statistical Programmer Name Role Phone Filipe Marie MD Primary Care Provide r Filipe Marie MD Unavailable Encounter Details Date Type Department Care Team (Late st Contact Info) Description 08/21/2025 [facility] VIRTUAL DEPARTMENT [address] [place] [id number] Unknown, Unknown, Social History Tobacco Use Types [...] on file documented as of this encounter ED Notes * Unknown, Unknown, - 08/21/2025 11:10 PM EDT [facility] EMERGENCY DEPARTMENT DISPOSITION SUMMARY This is a Summary Chart only For additional details, please see [facility] PCI ED Chart Viewer, the PulseCheck Option or Emergency Dept Scanned Forms. You may also contact Medical Records at [phone] / [phone]. [facility] MDM NOTES PHYSICIAN MDM: Patient with benign exam and vitals. Considered med cleared for psych eval. Patient was initially being uncooperative and meds and restraints were ordered but now has agreed to change and go into the room. Will keep orders in place for now in case he becomes aggressive again but is cooperating for now. Psych awaiting collateral information which likely will not be available until morning. Will be signed and completed to oncoming physician at end of shift. DISPOSITION PATIENT: Disposition Type: Transfer, Disposition: PSYCHIATRIC FACILITY, Patient departed from the Emergency Department. PRESCRIPTION No recorded prescriptions ADMIN DIGITAL SIGNATURE: MD De La Torre Michael. Godoy: MARGARETH=ORQUIDEA Terrazas, Giovanny MAURICE=MD De La Torre Michael Name: Sathish Bonner : 2005 M19 MedRec: [id number] AcctNum: [id number] CC OTHER PROVIDER: PRIMARY CARE: IFLIPE MARIE MD documented in this encounter Plan of Treatment Not on file documented as of this encounter Visit Diagnoses Not on filedocumented in this encounter Care Teams Clinical Statistical Programmer Relationship Specialty Start Date End Date Filipe Marie MD [address] [place] [address] [email or web address] PCP - General Pediatrics 10/07/22 Filipe Marie MD [address] [place] [address] [email or web address] Insurance Assigned Provider 02/10/24 documented as of this encounter Additional Source Comments The information contained in this document represents components of the legal health record. It is not the complete legal health record.[facility]
[2025-08-22 23:01] VITALS: BP 115/55; PULSE 74; RESP 18; TEMP 36.6; O2SAT 97
[2025-08-22 23:02] VITALS: BMI 23.9
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
[2025-08-23 08:47] LABS: Hemoglobin A1C 134.6026 umol/L; Total Hemoglobin (HGBA1C) 3815.0389 umol/L
[2025-08-23 08:51] LABS: Alanine Aminotransferase 48 U/L (0-40); Albumin Level 5.1 g/dL (3.5-5.0); Alkaline Phosphatase 50 U/L (39-117); Anion Gap 18 (12-20); Aspartate Amino Transferase 43 U/L (5-37); Blood Urea Nitrogen 12 mg/dL (9-16); Calcium 10.2 mg/dL (8.4-10.2); Carbon Dioxide 22 mmol/L (22-29); Chloride 105 mmol/L (96-108); Cholesterol 169 mg/dL (<200); Creatinine Clr Calc Pharmacy 130.7; Estimated Glomerular Filt Rate > 60; HDL Cholesterol 76 mg/dL (>40); Potassium 4.2 mmol/L (3.3-5.1); Sodium 141 mmol/L (135-145); Total Protein 7.4 g/dL (6.5-8.0); Triglycerides 104 mg/dL (<150)
[2025-08-23 08:56] LABS: Free T4 (Free Thyroxine) 1.01 ng/dL (0.71-1.85); Thyroid Stimulating Hormone 0.57 uIU/mL (0.32-4.0)
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
[2025-08-23 09:27] VITALS: BP 114/63; PULSE 80; TEMP 37.3; O2SAT 99
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
[2025-08-23] MEDS: buPROPion HCl XL 150 MG TAB.ER.24H PO (13:20)
[2025-08-23 20:00] VITALS: BP 136/63; PULSE 68; RESP 16; TEMP 37.3; O2SAT 100
[2025-08-24 08:00] VITALS: BP 110/79; PULSE 79; TEMP 36.9; O2SAT 100
--- NOTE | 2025-08-24 09:33 | P.PNPSI_ITS ---
Subjective Subjective Date of Service: 08/24/25 Reason For Visit: F43.22 Adjustment disorder with anxiety Interim History: Patient seen. Discussed with RN. Patient reports he thinks coming in was a good thing. I needed a break from the real world. Sometimes things go really fast and it's overwhelming. Had visits with his family. They went well. Tolerating the Wellbutrin well. No side effects. Asked him to provide results from his neuropsychological testing for review. He was reluctant to start stimulants in the past but I am more open to it now. His family advocating for him to have a computer. He says he has 5 classes and applying to 4 yr universities in [place] and [place]. Denies SI/HI/AVH. Affect and mood remain depressed. Review of Systems Review of Systems Yes all other systems are reviewed and are negative Constitutional: Denies fever(s) Cardiovascular: Denies chest pain and Denies dyspnea Respiratory: Denies cough and Denies dyspnea Gastrointestinal: Denies abdominal pain and Denies diarrhea Mental Status Exam Mental Status Exam Narrative: General appearance: Hospital gown. Tall. Well built Good hygiene.? Eye contact: poor, intermittent. Musculoskeletal: Normal muscle strength/tone, Normal gait and station, No abnormal involuntary movements like tremors, EPS or dyskinesia. No psychomotor agitation or retardation. Normal posture.??? Manner/behavior: cooperative and not guarded Speech:?Soft. Language: No receptive or expressive language impairment? Mood: It's a lot of stress. Affect: blunted range, congruent to mood and without lability? Thought process/associations: Linear with no flight of ideas or loose associations.?? Thought content:?No delusions or paranoia.?? Hallucinations: No auditory, visual or other hallucinations No?flashbacks, nightmares or dissociation? ? Suicidality/self-destructive behavior: none, future oriented, hopeful.? ? Homicidally/violence: none.? Reliability: good.? ? Judgment: preserved.? ? Insight: preserved Cognition: Alert and oriented to time, place and person. Attention, concentration and fund of knowledge are normal.? Impulse control and emotional regulation: preserved. Intelligence estimate: average.? Diagnostics Vital Signs (24Hr): Vital Signs - 24 hr 08/23/25 20:00 08/24/25 08:00 Temperature 99.1 F 98.4 F Pulse Rate 68 79 Respiratory Rate 16 Blood Pressure 136/63 110/79 Pulse Oximetry 100 100 Oxygen Delivery Method Room Air Room Air BMI result Body Mass Index 23.9 Labs 08/23/25 08:03 Labs: Laboratory Results - last 48 hr 08/23/25 08:03 Sodium 141 Potassium 4.2 Chloride 105 Carbon Dioxide 22 Anion Gap 18 BUN 12 Creatinine 0.96 Estim Creat Clear Calc 130.7 Estimated GFR > 60 Random Glucose 71 Estimat Average Glucose 108 Hemoglobin A1c % 5.4 Calcium 10.2 Total Bilirubin 1.0 AST 43 H ALT 48 H Alkaline Phosphatase 50 Total Protein 7.4 Albumin 5.1 H Triglycerides 104 Cholesterol 169 LDL Cholesterol, Calc 73 HDL Cholesterol 76 TSH 0.57 Free T4 1.01 Medications Medications Current Medications Acetaminophen (Acetaminophen 325 Mg Tablet) 650 mg PO Q6H PRN PRN Reason: Headache/Pain, Scale 1-10 Al Hydroxide/Mg Hydroxide (Magnesium Hydrox/Alum Hydrox 30 Ml Oral.Susp) 30 ml PO Q6H PRN PRN Reason: Heartburn/Nausea Bupropion HCl (Bupropion Hcl Xl 150 Mg Tab.Er.24h) 150 mg PO DAILY GALO Last Admin: 08/23/25 13:20 Dose: 150 mg Hydroxyzine HCl (Hydroxyzine Hcl 25 Mg Tablet) 25 mg PO Q6H PRN PRN Reason: mild anxiety Magnesium Hydroxide (Milk Of Magnesia 30 Ml Oral.Susp) 30 ml PO DAILY PRN PRN Reason: Constipation Nicotine (Nicotine 21 Mg Patch.Td24) 21 mg TRANSDERMA DAILY PRN PRN Reason: nicotine craving Nicotine Polacrilex (Nicotine Polacrilex 2 Mg Gum) 2 mg BUCCAL Q2H PRN PRN Reason: Nicotine Cravings Olanzapine (Olanzapine 5 Mg Tablet) 5 mg PO BID PRN PRN Reason: agitation Trazodone HCl (Trazodone Hcl 50 Mg Tablet) 50 mg PO BEDTIME MRX1 PRN PRN Reason: Insomnia Allergies Allergies Allergy/AdvReac Type Severity Reaction Status Date / Time No Known Allergies Allergy Verified 08/22/25 21:00 Assessment & Plan Assessment & Plan (1) Routine medical exam: Status: Acute Code(s): Z00.00 - Encounter for general adult medical examination without abnormal findings Plan This is a 19-year-old male admitted to from [facility] in [facility] for adjustment disorder with anxiety after episode of violent behavior. He has symptoms consistent with depression and ADHD in the setting of tackling early adult developmental challenges and family stress. PLAN: - Admit to inpatient psychiatry - CV - Collateral information from family and providers. - Milieu treatment and group therapy. - Medications: Start Wellbutrin XL 150 mg for depression and as potential help with ADHD. - Social work evaluation. - Disposition planning. 08/24: May use computer for college work under supervision one hour one time a day. Consider starting stimulant vs continuing Wellbutrin and addressing ADHD post DC. Reason for continued inpatient stay Substantial Risk for: harm to self, inability to function and rapid decompensation Time Spent With Patient Time: Total time managing care of this patient today ____ minutes.
[2025-08-24] MEDS: buPROPion HCl XL 150 MG TAB.ER.24H PO (09:40)
[2025-08-24 19:43] VITALS: BP 130/72; PULSE 60; TEMP 36.8; O2SAT 98
[2025-08-25 08:14] VITALS: BP 149/73; PULSE 88; RESP 14; TEMP 36.4; O2SAT 98
[2025-08-25] MEDS: buPROPion HCl XL 150 MG TAB.ER.24H PO (08:43)
--- NOTE | 2025-08-25 09:50 | P.DS_ITS ---
DS: Providers Provider Date of admission: 08/22/25 22:06 Primary care physician: Yesy Physician Consults: 08/22/25 21:00 Consult to Hospitalist Routine Comment: [place] [facility] [place] Reason For Exam: New external admit H+P DS: Diagnosis Discharge Diagnosis (1) Routine medical exam: Status: Acute DS: Medications Discharge Medications Home Medications: Home Medications ?Medication ?Instructions ?Recorded ?Confirmed No Known Home Meds 08/23/25 08/23/25 Data Data Completed and Pending Completed studies during hospitalization [Text1]: 08/23/25 08:03 Sodium 141 Potassium 4.2 Chloride 105 Carbon Dioxide 22 Anion Gap 18 BUN 12 Creatinine 0.96 Estim Creat Clear Calc 130.7 Estimated GFR > 60 Random Glucose 71 Estimat Average Glucose 108 Hemoglobin A1c % 5.4 Calcium 10.2 Total Bilirubin 1.0 AST 43 H ALT 48 H Alkaline Phosphatase 50 Total Protein 7.4 Albumin 5.1 H Triglycerides 104 Cholesterol 169 LDL Cholesterol, Calc 73 HDL Cholesterol 76 TSH 0.57 Free T4 1.01 DS: Summary Time Spent with Patient Time attestation: Total time managing care of this patient today ____ minutes. Discharge Plan Discharge Referrals: PhysicianYesy [Primary Care Provider, Medical] - 1 Week Discharge Medications: No Action No Known Home Meds Print Language: Khmer
== END 2025-08-25 15:54 | disposition home or self-care (01) | DRG 882 ==
PROVIDERS: Nurse Practitioner Psychiatric/Mental Health; Admitting Provider Psychiatry & Neurology Psychiatry; Visit Provider Psychiatry & Neurology Psychiatry
DX: F43.22 Adjustment disorder with anxiety (principal); F90.9 Attention-deficit hyperactivity disorder, unspecified type
CPT/HCPCS: 36415; 80053; 80061; 83036; 84439; 84443

== ENCOUNTER → 2025-08-22 22:06 | Outpatient (BNV) | payer SELFPAY | PROVIDERS: Admitting Provider Psychiatry & Neurology Psychiatry; Visit Provider Psychiatry & Neurology Psychiatry | DX: Z00.00 Encounter for general adult medical examination without abnormal findings (principal) | CPT/HCPCS: 99429 ==

== ENCOUNTER → 2025-08-22 22:06 | Outpatient (BNV) | payer SELFPAY | PROVIDERS: Admitting Provider Psychiatry & Neurology Psychiatry; Visit Provider Physician Assistant Medical | DX: Z00.00 Encounter for general adult medical examination without abnormal findings (principal) | CPT/HCPCS: 99429 ==